=== PATIENT | female | born 2005 | race Asian ===

== ENCOUNTER 2024-12-25 07:37 | Outpatient (REF) | payer BC, SELFPAY ==
--- NOTE | ~2024-12-25 | US_ITS ---
EXAMINATION: US PELVIS TRANSABDOMINAL AND TRANSVAGINAL HISTORY: ABNORMAL BLEEDING, CHECK IUD, SCREEN FOR CX MALIGNANCY COMPARISON: There are no prior studies available for comparison. TECHNIQUE: Transabdominal and endovaginal real-time 2D minaya-scale ultrasound was performed. FINDINGS: Uterus: The uterus is normal in size, measuring 7.6 x 3.0 x 4.5 cm. Myometrium has a normal echotexture. No fibroids are identified. Endometrium: The endometrial stripe measures 1 mm in thickness. An IUD is appropriately positioned in the endometrial canal. Right ovary: The right ovary measures 3.1 x 1.6 x 1.7 cm. The right ovary is normal in size and echotexture. Left ovary: The left ovary measures 2.7 x 1.2 x 2.4 cm. The left ovary is normal in size and echotexture. Pelvic fluid: none. US/US pelvic and transvaginal IMPRESSION: Unremarkable pelvic ultrasound. Appropriately positioned IUD. Electronically signed by: Javon Lawrence MD 12/25/2024 03:18 PM [facility]
--- OUTSIDE RECORDS SUMMARY | 2024-12-25 07:41 | XMS_ITS | Clinical Summary ---
Author Organization [facility] Address [address] [place] [address] Care Team Providers Care Mayonnaise Mixer Name Role Phone Issac Reyes MD Unavailable [phone] Wandy Mattson MD Primary Care Provider [phone] Allergies No known active allergies Medications * This document contains information received from the source organization and may not represent a complete record from that organization. No known medications Social History Tobacco Use Types Packs/Day Years Used Date Smoking Tobacco: Never Assessed Comments No Sex and Gender Information Value Date Recorded Sex Assigned at Female 07/29/2023 1:17 PM EDT Legal Sex Female 1:14 PM EDT Gender Identity Female 07/29/2023 1:17 PM EDT Sexual Orientation Not on file Last Filed Vital Signs Vital Sign Reading Time Taken Comments Blood Pressure 130/75 05/23/2024 2:59 PM EDT Pulse 70 05/23/2024 2:59 PM EDT Temperature 36.7 C (98 F) 05/23/2024 2:59 PM EDT Respiratory Rate 16 05/23/2024 2:59 PM EDT Oxygen Saturation 98% 05/23/2024 2:59 PM EDT Inhaled Oxygen Concentration - - Weight 70.3 kg (155 lb) 05/23/2024 1:42 PM EDT Height 167.6 cm (5' 6 ) 05/23/2024 1:42 PM EDT Body Mass Index 25.02 05/23/2024 1:42 PM EDT Plan of Treatment Health Maintenance Due Date Last Done Comments Depression Screening 2007 Chlamydia and Gonorrhea Screening 2018 Meningococcal B Vaccines (1 of 2 - Standard) 2019 Hepatitis C Screening 2021 DTaP,Tdap,and Td Vaccines (1 - Tdap) 2022 Cervical Cancer Screening 2024 Pap Smear 2024 COVID-19 Vaccine (1 - 2023-2 5 season) 2024 Influenza Vaccine (#1) 2024 Blood Pressure 05/23/2028 05/23/2024 Meningococcal Vaccines Aged Out No lo nger eligible based on patient's age to complete this topic Pneumococcal Vaccine Aged Out No long er eligible based on patient's age to complete this topic Insurance [employer] Care Teams Mayonnaise Mixer Relationship Specialty Start Date End Date Issac Reyes MD [address] [place] [id number] PCP - Insurance Assigned PCP 10/11/23 Wandy Mattson MD [address] [place] [id number] PCP - General Pediatric Medicine 05/23/24
--- OUTSIDE RECORDS SUMMARY | 2024-12-25 07:41 | XMS_ITS | Clinical Summary ---
Author Organization [facility] Address [address] [place] [phone] Phone Care Team Providers Care Foreign Exchange Student Coordinator Name Role Phone Pcp, Unknown Primary Care Provider Unavailsen e ePri Jasso MD, MBBS Unavailable Social History Tobacco Use Types Packs/Day Years Used Date Smoking Tobacco: Never Assessed Education Answer Date Recorded Are you interested in more education? Not on hilton e 01/30/2024 Are you concerned about learning? Not on file 01/30/2024 No 01/30/2024 No 01/30/2024 Digital Access Answer Date Recorded No 01/30/2024 No 01/30/2024 Reliable internet access at home? Not on file 01/30/2024 Device with a working camera? Not on file Comments Unknown Sex and Gender Information Value Date Recorded Sex Assigned at Not on file Legal Sex Female 11:11 AM EST Gender Identity Not on file Sexual Orientation Not on file Plan of Treatment Health Maintenance Due Date Last Done Comments HEPATITIS A VACCINES (2 of 2 - 2-dose series) 12/15/2005 06/15/2005, 03/07/2005 DEPRESSION SCREENING 2015 SMOKING Hx and SMOKELESS TOBACCO SCREENING 2016 HPV VACCINES (1 - 3-dose series) 2018 CHLAMYDIA SCREENING 2019 MENINGOCOCCAL VACCINES (B) (1 of 2 - Standard) 2019 ADOLESCENT UNIVERSAL LIPID SCREENING 2020 HEPATITIS C SCREENING 2021 HIV ONE-TIME SCREENING (18-65 YEARS) 2021 PAP SMEAR 2024 Adult Td,Tdap Booster 06/19/2024 06/19/2014 COMBINED DTaP,Tdap,Td (6 - Td or Tdap) 06/19/2024 06/19/2014, 03/07/2007, 02/25/2004, Additional history exists INFLUENZA VACCINE (#1) 2024 , 02/16/2019, 01/20/2018, Additional history exists COVID-19 VACCINE ( - 2024- season) 2024 06/17/2020 HIB VACCINES Aged Out 02/25/2004, 08/21, 2003, Additional history exists No longer eligible based on patient's age to complete this topic PNEUMOCOCCAL VACCINES (0-49 years) Aged Out 02/25/2004, 2003, 2003, Additional history exists No longer eligible based on patient's age to complete this topic MMR VACCINES Completed 03/07/2007, 02/25/2004 MENINGOCOCCAL VACCINES (ACWY) Completed 12/26/2019, 06/19/2014 Medical Devices Not on file Insurance Care Teams Foreign Exchange Student Coordinator Relationship Specialty Start Date End Date Pcp, Unknown PCP - General 01/30/24 Peri Jasso MD, MBBS [address] [address] [email or web address] 01/30/24 Additional Source Comments The information contained in this document represents components of the legal health record. It is not the complete legal health record.[facility]
--- OUTSIDE RECORDS SUMMARY | 2024-12-25 07:41 | XMS_ITS | Clinical Summary ---
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 08/17/2024 Other headache syndrome 07/25/2024 Head injury 07/25/2024 Postconcussion syndrome 07/25/2024 Paresthesia of skin 07/25/2024 Social History Tobacco Use Types Packs/Day Years Used Date Smoking Tobacco: Never Smokeless Tobacco: Never Tobacco Cessation:Counseling Given: Not Answered Alcohol Use Standard Drinks/Week Comments Not Currently 0 (1 standard drink = 0.6 oz pur e alcohol) Comments Unknown Sex and Gender Information Value Date Recorded Sex Assigned at Female 03/28/2021 3:01 AM EST Legal Sex Female 3:01 AM EST Gender Identity Female 06/06/2024 9:05 AM EDT Sexual Orientation Unknown 06/06/2024 9: 05 AM EDT Plan of Treatment Health Maintenance Due Date Last Done Comments Chlamydia Screening 2003 HIV Screening 2003 Hepatitis A Vaccines (2 of 2 - 2-dose series) 12/15/2005 06/15/2005, 03/07/2005 Hepatitis C Screening 2021 Depression Screening 02/22/2024 Pap Smear 2024 COVID-19 Vaccine ( season) 2024 01/27/2024, 03/15/2022, 07/08/2020, Additional history exists Influenza Vaccine (#1) 2024 , 03/15/2022, 03/10/2021, Additional history exists DTaP/Tdap/Td Vaccines (7 - Td or Tdap) 02/10/2034 02/11/2024, 06/19/2014, 03/07/2007, Additional history exists HIB Vaccines Aged Out 02/25/2004, 08/21, 2003, Additional history exists No longer eligible based on patient's age to complete this topic Pneumococcal Vaccine: Pediatrics (0 to 5 Years) and At-Risk Patients (6 to 49 Years) Aged Out 02/25/2004, 2003, 2003, Additional history exists No longer eligible based on patient's age to complete this topic Hepatitis B Vaccines Completed 03/06/2007, 2003, 2003, Additional history exists IPV Vaccines Completed 03/07/2007, 08/21, 2003, Additional history exists Varicella Vaccines Completed 08/22/2007, 03/07/2007 Meningococcal Vaccine Completed 12/26/2019, 015 HPV Vaccines Completed 05/24/2023, 02/22, 03/10/2021 MMR Vaccines Completed 05/29/2024, 07/2023, 03/07/2007, Additional history exists Meningococcal B Vaccine Completed 07/31/2024, 07/26 Rotavirus Vaccines Aged Out No longer eligible based on patient's age to complete this topic Insurance [facility] IN[facility]MNITY GENERIC WORKERS' COMP [place] [id number] Care Teams Sales Representative Relationship Specialty Start Date End Date Wandy Mattson MD [address] [place] [id number] PCP - General Dust Control Engineer 05/31/24
--- OUTSIDE RECORDS SUMMARY | 2024-12-25 07:41 | XMS_ITS | Clinical Summary ---
[facility] Organization [facility] Address [address] [place] [address] [address] [place] [address] Care Team Providers Care Wad Blanking Press Adjuster Name Role Phone Wandy Mattson Md Primary Care Provider [phone] Peter Tam Np Unavailable [phone] MalolepszyIssac Md Unavailable [phone] MalolepszyIssac Md Unavailable [phone] Allergies No known active allergies Medications * This document contains information received from the source organization and may not represent a complete record from that organization. No known medications Active Problems Problem Noted Date Diagnosed Date Postconcussion syndrome 07/31/2024 Overview (07/31/2024): Followed by Dr. Bruce at [facility] Assessment & Plan (07/31/2024 2:14 PM EDT): Cont. To feel some numbness on right side of scalp - ?fluid Seen by Dr. 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 Good sleep hygiene - Rec. Keeping screens out of bedroom - enc. 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 To speak with school counselor but d/n feel really needs to (no longer speaks with adjustment counselor) Family disruption due to of family member 01/07/2017 Overview (04/07/2017): Mother - breast CA -2016 BMI (body mass index), pedia tric, 85% to less than 95% for age 0103/20/2015 Overview (05/10/2018): 03/08: BMI 90%ile based on CDC 2-20 Years BMI-for-age data. - enc. More activity 04/09: improved BMI 85 %ile based on CDC 2-20 Years BMI-for-age data using vitals from 03/25/2016. 04/10 88 %ile based on CDC 2-20 Years BMI-for-age data using vitals from 04/07/2017. 05/09: improved BMI 84 %ile based on CDC 2-20 Years BMI-for-age data using vitals from 05/10/2018. Assessment & Plan (07/28/2023 12:26 PM EDT): Very active Continue to monitor Assessment & Plan (03/10/2021 10:22 AM EST): Cont. To enc. Healthy diet/exercise Nevus 03/20/2015 Overview (05/10/2018): Left Lower back 03/08: 5 x 10 mm 05/09: same - rec. Consider seeing Derm Family history of breast cancer in mother 2015 Overview (01/07/2017): Diagnosed 04/09: undergoing chemo, plan to go to summer camp for kids with family members with CA - [employer] 01/07: mom 2 mos. ago Resolved Problems Problem Noted Date Diagnosed Date Resolved Date History of COVID-19 03/10/2021 05/25/19 24 Overview (03/10/2021): 2021 Immunization deficiency 04/07/2017 06/0 06/2023 Overview (05/10/2018): 04/10 mmr #1 given too early Pt states she has another mmr at age 10 Will try to get old records 05/09: says got in [place] and has record somewhere - will try to get to us Screening for mental disease /developmental disorder 03/20/2015 05/10/2018 Overview (04/07/2017): 03/08: PSC score: 2 04/09: PSC score: 4 - feels can talk to friends - one friend's mom just dx'd with breast CA Amaury Higuera so helps to help her 04/10 passed psc Hemangioma 03/20/2015 05/25/2023 Overview (04/07/2017): 03/08: 3.5 x 4.5 in. Left calf 04/09: same 04/10 as above Immunizations Immunization Administration Dates Next Due COVID-19 (MODERNA) Vaccine, 12YRS+, 50mcg/0.5mL 01/27/2024 COVID-19 (PFIZER) Vaccine, 30mcg/0.3mL, 12YRS+, Diluent Reconstituted, IM 07/08/2020,06/17/2020 COVID-19 (PFIZER) Vaccine, 30mcg/0.3mL, Bivalent, 12YRS+, Pre-Mixed 03/15/2022 DTaP Vaccine 03/07/2007, 5,2003,07/16,2003 HFlu B (Unspecified Formulation) 005,2003,2003,05/06 HPV9 Vaccine (Gardasil9) 05/24/2023,03/15/2022,0 03/10/2021 Hep A Vaccine (Unspecified Formulation) 03/07/2007 Hep A Vaccine Pedi/Adol-2 Dose Sched 03/07/2005 Hepatitis B Vaccine Pedi/Ado lescent 3 Dose Schedule 03/06/2007,2003,2003,03/04 Influenza H1N1 Vaccine >= 36 Mos - [facility] 01/25/2009,12/22/2008 Influenza Vaccine 11/23/2011,12/14/2009,01/10/20 08 Influenza Vaccine (Unspecifi ed Formulation) 01/01/2015 Influenza Vaccine, 36MOS+, S plit Virus, Single Dose Syringe (AFLURIA) 01/27/2024 Influenza Vaccine, 6MOS+, Si ngle Dose, 0.5 mL (Flulaval/Fluzone) 03/15/2022,03/10/2021,12/26/2019,02/16,01/20/2018,01/20/2017 Influenza Vaccine, Quadrival ent Split Virus Preserv Free >/= 36 Mos 01/01/2016 MMR Vaccine 05/29/2024,01/27/2024,03/07/2007 Meningococcal ACWY (Menactra ) Conjugate Vaccine 12/26/2019,06/19/2014 Meningococcal Group B (Bexse ro) Conjugate Vaccine 07/31/2024,07/27/2023 Pneumococ/Pedi-Conjugate (PCV7) 02/24/19 05,2003,2003,05/06 Polio Vaccine (Inactivated) 03/07/2007,0 2003,2003,05/06 TB Test 02/12/2024,01/27/2024,04/06/2022 TdaP 02/11/2024,06/19/2014 Varicella Vaccine 08/22/2007,03/07/2007,09/01/19 05 Family History Medical History Relation Comments Hyperlipidemia Father Hypertension Father Cancer - breast Mother 11/07 liver cancer Paternal Grandfather Hypertension Paternal Grandmother Relation Status Comments Father Mother Paternal Grandfather Paternal Grandmother Social History Tobacco Use Types Packs/Day Years Used Date Smoking Tobacco: Never Smokeless Tobacco: Never Tobacco Cessation:Counseling Given: Not Answered Alcohol Use Standard Drinks/Week Comments No 0 (1 standard drink = 0.6 oz pur e alcohol) Hunger Vital Sign Answer Date Recorded Within the past 12 months, y ou worried that your food would run out before you got the money to buy more. Never true 08/01/19 25 Within the past 12 months, t he food you bought just didn't last and you didn't have money to get more. Never true 07/31/2024 PRAPARE - Transportation Answer Date Re corded In the past 12 months, has l ack of transportation kept you from medical appointments or from getting medications? No 07/22 In the past 12 months, has l ack of transportation kept you from meetings, work, or from getting things needed for daily living? No 07/31/2024 Depression Answer Date Recorded Last PHQ-2 0 07/31/2024 Last PHQ-9 4 07/31/2024 Suicidal Ideation/Self Harm Risk 0 - not at all 07/31/2024 Housing Stability Answer Date Recorded What is your housing situation today? Has osmany chin 07/31/2024 Are you worried about losing your housing? No 07/31/[address] you li ve. Do you have problem with any of the following? (Choose all that apply) None of the Above 11/2024 Request Assistance Answer Date Recorded Would you like to discuss an y of the needs you identified in this survey with a member of your care team? No 2024 Urgent Assistance Needed Not on file 025 Social Isolation Answer Date Recorded How often do you feel lonely or isolated from th ose around you? Rarely 07/31/2024 Family Needs Answer Date Recorded In the past year, have you o r any family members that you live with been unable to get resources (utilities such as power, water, or phone service; clothing; childcare; medicine or other healthcare; employment; etc) when they were really needed? No needs 07/31/2024 Other Needs Not on file 07/31/2024 Safety Answer Date Recorded Do you feel physically and e motionally safe where you currently live? Yes 07/31/2024 Self-Management Confidence Answer Date Recorded How confident are you that y ou can control and manage most of your health problems? Please provide numerical response between 0 -10. 0 = Not at all confident, 10= Completely confident. 10 07/31/2024 Comments Unknown Sex and Gender Information Value Date Recorded Sex Assigned at Female 07/24/2023 5:02 PM EDT Legal Sex Female 1:34 PM EST Gender Identity Female 07/24/2023 5:02 PM EDT Sexual Orientation Bisexual 07/24/2023 5: 02 PM EDT Obstetrics History Last Filed Vital Signs Vital Sign Reading Time Taken Comments Blood Pressure 104/62 07/31/2024 1:49 PM EDT Pulse 71 05/29/2024 2:10 PM EDT Temperature 35.9 C (96.7 F) 05/29/2024 2:10 PM EDT Respiratory Rate - - Oxygen Saturation 98% 05/29/2024 2:10 PM EDT Inhaled Oxygen Concentration - - Weight 68.9 kg (152 lb) 07/31/2024 1:49 PM EDT Height 166.5 cm (5' 5.55 ) 07/31/2024 1:49 PM ED T Body Mass Index 24.87 07/31/2024 1:49 PM EDT Plan of Treatment Upcoming Encounters Date Type Department Care Team (Late st Contact Info) Description 08/01/2025 10:00 AM EDT Office Visit [facility] [address] [place] [phone] Peter Tam NP [address] [place] [address] Health Maintenance Due Date Last Done Comments PAP: UPDATE W EDIT MODIFIERS 2024 * A1C TEST - Q1Y PREDIABETES 07/26/2024 07/27/2023 COVID-19 Vaccine ( season) 2024 01/27/2024, 03/15/2022, 07/08/2020, Additional history exists FLU SEASONAL (#1) 10/22/2024 01/27/2024, 03/15/2022, 03/10/2021, Additional history exists CHLAMYDIA SCREENING FEMALE 16-24 07/31/2025 07/31/2024, 07/27/2023, 03/15/2022, Additional history exists PERIODIC HEALTH REVIEW 07/31/2025 07/31/2024 HEP C SCREENING 07/26/2028 07/27/2023 LIPID SCREENING 07/26/2028 07/27/2023, 07/05/2019 DTAP/TDAP/TD VACCINE (7 - Td or Tdap) 02/10/2034 02/11/2024, 06/19/2014, 03/07/2007, Additional history exists HAEMOPHILUS INFLUENZA VACCINE Aged Out 02/25/2004, 2003, 2003, Additional history exists No longer eligible based on patient's age to complete this topic PNEUMOCOCCAL VACCINE(S) Aged Out 02/24/19, 2003, 2003, Additional history exists No longer eligible based on patient's age to complete this topic HEPATITIS B VACCINE Completed 03/06/2007, 2003, 2003, Additional history exists HEPATITIS A VACCINE Completed 03/07/2007, 6 POLIO VACCINE Completed 03/07/2007, 08/21, 2003, Additional history exists MENINGOCOCCAL VACCINE (ACWY) Completed 12/26/2019, 06/19/2014 HPV VACCINE Completed 05/24/2023, 02/22, 03/10/2021 HEP B INITIAL SCREENING Completed 07/27/2023 HIV SCREENING Completed 07/27/2023 RUBELLA Completed 05/29/2024, 12/0 07/2023, 03/07/2007 MENINGOCOCCAL VACCINE (B) Completed 07/31/2024, 06/2023 RSV Vaccine Infant//toddler Aged Out No longer eligible based on patient's age to complete this topic Procedures Procedure Name Priority Date/Time Associated Diagnosis Comments CHLAMYDIA URINE DNA Routine 07/31/2024 4 :12 PM EDT Encounter for routine adult health examination without abnormal findings HEPATITIS C ANTIBODY W/REFLEX TO PCR Routine 07/27/2023 5:00 PM EDT Encounter for routine adult health examination without abnormal findings HIV 1/2 ANTIGEN / ANTIBODY 4TH GENERATION W/REFLEX Routine 07/27/2023 5:00 PM EDT Encounter for routine adult health examination without abnormal findings HEMOGLOBIN A1C Routine 07/27/2023 5:00 PM EDT Encounter for routine adult health examination without abnormal findings HDL Routine 07/27/2023 5:00 PM EDT Encounter for routine adult health examination without abnormal findings from Last 3 Months or Most Recently Relevant to Health Maintenance Results * CHLAMYDIA URINE DNA (07/31/2024 4:12 PM EDT) CHLAMYDIA PCR Negative Negative 08/01/2024 12:13 AM EDT [facility] DEPARTMENT OF PATHOLOGY AND LAB MEDICINE Comment: Test performed using Aptima Combo2 PCR assay. SOURCE URINE 08/01/2024 12:13 AM EDT [facility] DEPARTMENT OF PATHOLOGY AND LAB MEDICINE Urine (URINE) Urine / Unknown 07/31/2024 4:12 PM EDT 07/31/2024 4:12 PM EDT us Wandy Mattson LAB URINE ORDERABLES Final Resul t [facility] DEPARTMENT OF PATHOLOGY AND LAB MEDICINE [address] [place] [address] * HEPATITIS C ANTIBODY W/REFLEX TO PCR (07/27/2023 5:00 PM EDT) HEPATITIS C ANTIBODY 0.21 <0.80 Index Value (IV) 07/27/2023 10:08 PM EDT [facility] DEPARTMENT OF PATHOLOGY AND LAB MEDICINE Comment: NEGATIVE 0.00 - 0.79 Index Value (IV) Negative Test performed by the [employer] ADVIA Osprey Dataaur instrument using chemiluminescent immunoassay. Blood (Blood, Venous) Venipuncture / Unknown 07/27/2023 5:00 PM EDT 07/27/2023 5:00 PM EDT us Peter Campositt GENERAL LAB Final Result Performing Organization Address [facility] Co de Phone Number [facility] PATHOLOGY AND LAB MEDICINE [address] [place] [address] * (ABNORMAL) HEMOGLOBIN A1C (07/27/2023 5:00 PM EDT) HEMOGLOBIN A1C 5.8(H) <5.7 % 07/27/2023 11:37 PM EDT [facility] OF PATHOLOGY AND LAB MEDICINE Comment: Non-Diabetic Reference Range <5.7% Pre-Diabetic Reference Range 5.7% - 6.4% Diabetic Reference Range >6.4% The [place] [employer] recommends that the goal of therapy should be a hemoglobin A1C of < 7.0% and that physicians should reevaluate the treatment regimen in patients with hemoglobin A1C values consistently > 8.0%. ESTIMATED AVERAGE GLUCOSE 120 mg/dL 07/27/2023 11:37 PM EDT [facility] OF PATHOLOGY AND LAB MEDICINE Comment: Estimated Average Glucose A1C(%) mg/dl (95% CI) 5 97 (76-120) 6 126 (100-152) 7 154 (123-185) 8 183 (147-217) 9 212 (170-249) 10 240 (193-282) 11 269 (217-314) 12 298 (240-347) Based on the ADAG formula: eAG = (28.7 X A1c) - 46.7 with the 95% confidence interval as reported in: Mitchell BORGES et al, Diabetes Care, 2008, 31(8;6658 Blood (Blood, Venous) Venipuncture / Unknown 07/27/2023 5:00 PM EDT 07/27/2023 5:00 PM EDT us Peter Tam GENERAL LAB Final Result Performing Organization Address [facility] Co de Phone Number [facility] PATHOLOGY AND LAB MEDICINE [address] [place] [address] * HDL (07/27/2023 5:00 PM EDT) HDL 57 >=41 mg/dL 07/27/2023 9:28 PM EDT [facility] DEPARTMENT OF PATHOLOGY AND LAB MEDICINE Blood (Blood, Venous) Venipuncture / Unknown 07/27/2023 5:00 PM EDT 07/27/2023 5:00 PM EDT us Peter Gamez Np Anel GENERAL LAB Final Result [facility] OF PATHOLOGY AND LAB MEDICINE [address] [place] [address] from Last 3 Months or Most Recently Relevant to Health Maintenance Insurance [facility] Care Teams Wad Blanking Press Adjuster Relationship Specialty Start Date End Date Wandy Mattson MD [address] [place] [phone] PCP - General Pediatrics 01/06/15 Issac Reyes MD [address] [place] [address] PCP - Payer 08/17/23 Issac Reyes MD [address] [place] [address] PCP - BCBS HMO Attributed PCP 08/21/24 Peter Tam, AUTO MECHANIC SUPERVISOR [address] [place] [address] [facility] 07/27/23
== END 2024-12-25 07:38 | disposition home or self-care (01) ==
LOC: HO.UMASIMG 07:37
PROVIDERS: Visit Provider Family Medicine
DX: Z30.431 Encounter for routine checking of intrauterine contraceptive device (principal); N93.9 Abnormal uterine and vaginal bleeding, unspecified
CPT/HCPCS: 76830; 76856

== ENCOUNTER → 2024-12-25 13:41 | Outpatient (BNV) | payer BC, SELFPAY | PROVIDERS: Visit Provider Radiology Diagnostic Radiology | DX: N93.9 Abnormal uterine and vaginal bleeding, unspecified (principal); Z12.4 Encounter for screening for malignant neoplasm of cervix | CPT/HCPCS: 76830; 76856 ==